=== PATIENT | female | born 1955 | race Caucasian/White ===

== ENCOUNTER → 2017-10-19 | Day surgery (SDC) | payer MEDICARE, MEDICAID ==
[~2017-10-19] MED LIST: Lactated Ringers 1,000 ML IV SCH; Ondansetron 4 MG/2 ML SDV ONE; Propofol 200 MG/20 ML SDV ONE; fentaNYL 100 MCG/2 ML SDV ONE
--- NOTE | 2017-10-20 08:12 | OR ---
PREOPERATIVE DIAGNOSIS: Diarrhea and diffuse abdominal pain. POSTOPERATIVE DIAGNOSIS: Diarrhea and diffuse abdominal pain. PROCEDURE PERFORMED: 1. EGD. 2. Colonoscopy. INDICATION: The patient is a 62-year-old female with a history of ongoing diarrhea for the last several years, been treated with Questran, which worked fairly well for her. She has also some intermittent diffuse abdominal pain with meals, presents for further evaluation. PROCEDURE IN DETAILS: Procedures done in the endoscopy suite. First, attention was turned to the upper endoscopy. The scope was introduced into the pharynx. Esophagus was intubated and traversed into the stomach past the pylorus into the first and second portions of the duodenum. The scope was slowly withdrawn. I did take a couple of biopsies of the antral mucosa, where there was some diffuse gastritis present. The scope was withdrawn and retroflexed. GE junction was normal. Scope was then withdrawn. The remainder of the way of the esophagus was normal. Final diagnosis is antral gastritis. Biopsies taken for H. pylori. Next, attention was turned to the colonoscopy. She was placed in left lateral position. First, rectal exam was done and it was normal. Scope was introduced into the rectum, slowly advanced to the rectum, descending, transverse, and ascending colon until the cecum was reached. Upon reaching the cecum, scope was slowly withdrawn looking at all mucosal surfaces on the way out. No mucosal abnormalities, lesions, or polyps. She did have a good-looking anastomosis at the distal sigmoid-rectal junction from a previous colon surgery. FINAL DIAGNOSIS: Normal colonoscopy. PLAN: We will recheck her in the office in a few weeks' time. I did recommend a CT scan for further evaluation of her abdominal pain. BKD: 10/19/2017 11:03:46 MODL: 10/19/2017 14:39:30 /[id number]
== END | disposition home or self-care (01) ==
LOC: VM.SDS 08:13
PROVIDERS: ATTEND Surgery
DX: K29.60 Other gastritis without bleeding (principal); K52.9 Noninfective gastroenteritis and colitis, unspecified; K59.09 Other constipation; R13.10 Dysphagia, unspecified; F41.9 Anxiety disorder, unspecified; F32.9 Major depressive disorder, single episode, unspecified; K21.9 Gastro-esophageal reflux disease without esophagitis; E66.01 Morbid (severe) obesity due to excess calories; Z68.36 Body mass index [BMI] 36.0-36.9, adult; Z90.49 Acquired absence of other specified parts of digestive tract; Z79.899 Other long term (current) drug therapy; Z88.1 Allergy status to other antibiotic agents; Z88.5 Allergy status to narcotic agent; Z88.2 Allergy status to sulfonamides
CPT/HCPCS: 00812; 00813; 82962; 88305; J2405; J2704; J3010; J7120